=== PATIENT | male | born 1985 | race Caucasian/White ===

== ENCOUNTER 2022-02-17 00:15 | Emergency (ER) | payer OTHER, SELFPAY ==
--- NOTE | ~2022-02-17 | XR_ITS ---
EXAMINATION: XR ABDOMEN KUB CLINICAL INDICATION: Fecal impaction COMPARISON: None TECHNIQUE: AP view of the abdomen. FINDINGS: The bowel gas pattern is nonobstructive. No significant stool burden is seen. There is limited assessment for free air with supine positioning. No suspicious calcifications are seen. Suture line and clips are noted in the left upper quadrant. No acute osseous findings are seen. Mild degenerative changes in the hips. XR/XR KUB IMPRESSION: Nonobstructive bowel gas pattern. No significant stool burden.
[2022-02-17 00:39] VITALS: BP 128/95; PULSE 88; RESP 17; TEMP 36.8; O2SAT 99; BMI 33.7
[2022-02-17 01:00] LABS: MANUAL DIFF FLAG NO
[2022-02-17 01:02] LABS: Basophils Percent Auto 0.3 % (0-2); Eosinophils Absolute Auto 0.1 X10*3/uL (0.0-0.4); Eosinophils Percent Auto 1.5 % (0-4); Hematocrit 43.6 % (42.0-52.0); Imm Gran Abs Auto 0.02 X10*3/uL (0.00-0.03); Imm Gran Pct Auto 0.2 % (0.0-0.4); Lymphocytes Absolute Auto 3.1 X10*3/uL (1.2-4.9); Lymphocytes Percent Auto 35.6 % (20-40); Mean Corpuscular HGB Conc 36.7 g/dl (31.0-36.0); Mean Corpuscular Hemoglobin 31.6 pg (27.0-33.0); Mean Corpuscular Volume 86.2 fL (80.0-98.0); Mean Platelet Volume 10.2 fL (9.4-12.4); Monocytes Absolute Auto 0.5 X10*3/uL (0.1-1.2); Monocytes Percent Auto 5.9 % (2-11); Neutrophils Absolute Auto 4.9 x10*3/uL (2.0-8.3); Neutrophils Percent Auto 56.5 % (45-73); Platelet Count 253 X10*3/uL (160-400); Red Blood Count 5.06 X10*6/uL (4.60-5.80); Red Cell Distribution Width 11.8 % (11.0-16.0); White Blood Count 8.7 X10*3/uL (4.8-10.8)
[2022-02-17 01:24] LABS: Alanine Aminotransferase 36 U/L (0-40); Albumin Level 4.3 g/dL (3.5-5.0); Alkaline Phosphatase 79 U/L (39-117); Anion Gap 17 (12-20); Aspartate Amino Transferase 28 U/L (5-37); Bilirubin Total 0.9 mg/dL (0.0-1.0); Blood Urea Nitrogen 13 mg/dL (9-16); Calcium 9.1 mg/dL (8.4-10.2); Carbon Dioxide 23 mmol/L (22-29); Chloride 103 mmol/L (96-108); Creatinine Clr Calc Pharmacy 109.7; Estimated Glomerular Filt Rate > 60; Glucose Random 87 mg/dL (60-115); Lipase 164 U/L (8-78); Potassium 4.5 mmol/L (3.3-5.1); Sodium 138 mmol/L (135-145); Total Protein 7.4 g/dL (6.5-8.0)
--- NOTE | 2022-02-17 03:38 | ED.ABDPAIN ---
HPI - Abdominal Pain General Chief Complaint: Abdominal Pain Stated Complaint: Constipated ?Hemorrhoids Time Seen by Provider: 02/17/22 03:37 Source: patient Mode of arrival: ambulatory Limitations: no limitations History of Present Illness HPI narrative: Patient status post gastric bypass done at [facility] 2 weeks ago been constipated taking milk of magnesia without significant relief also feels has hemorrhoids has lot of pain when he moves his bowels last bowel movement was earlier today , no nausea no vomiting no abdominal pain Related Data Previous Rx's Medication Instructions Recorded nitroglycerin 0.4 % (w/w) rectal 1 inch [place] BID #30 grams 02/17/22 ointment (Rectiv) Allergies Allergy/AdvReac Type Severity Reaction Status Date / Time No Known Allergies Allergy Verified 02/17/22 00:42 Review of Systems Review of Systems Yes all other systems are reviewed and are negative [facility] Social History Social History Advance Directives: No Advance Directives Information Provided: Yes Physical Exam ED Vital Signs: Vital Signs - 24 hr 02/17/22 00:39 02/17/22 04:00 Temperature 98.2 F 98.0 F Pulse Rate 88 60 Respiratory Rate 17 16 Blood Pressure 128/95 H 103/57 L Pulse Oximetry 99 98 Oxygen Delivery Method Room Air Room Air BMI result Body Mass Index 33.7 Appearance: Alert. Oriented X3. No acute distress. Eyes: PERRLA, No Nystagmus ENT: Pharynx normal. Oral Mucosa moist Neck: Normal inspection. Neck supple. CVS: Normal heart rate and rhythm. Pulses normal. Respiratory: No respiratory distress. Equal air entry bilateral, no wheezing/rales/rhonchi Abdomen: Soft and nontender. Bowel sounds are present, no mass palpable, no CVA tenderness rectal; tender to touch likely anal fissure no hemorrhoids seen or palpated Skin: Skin warm and dry. Normal skin color. Normal skin turgor. Extremities: No lower extremity edema. No calf tenderness Neuro: Oriented X 3. No motor deficit. MDM - Abdominal Pain Lab Data Result diagrams: 02/17/22 00:49 02/17/22 00:49 Labs: Lab Results 02/17/22 02/17/22 Range/Units 00:49 00:49 WBC 8.7 (4.8-10.8) X10*3/uL RBC 5.06 (4.60-5.80) X10*6/uL Hgb 16.0 (14.0-18.0) g/dl Hct 43.6 (42.0-52.0) % MCV 86.2 (80.0-98.0) fL MCH 31.6 (27.0-33.0) pg MCHC 36.7 H (31.0-36.0) g/dl RDW 11.8 (11.0-16.0) % Plt Count 253 (160-400) X10*3/uL MPV 10.2 (9.4-12.4) fL Immature Gran % (Auto) 0.2 (0.0-0.4) % Neut % (Auto) 56.5 (45-73) % Lymph % (Auto) 35.6 (20-40) % [place] % (Auto) 5.9 (2-11) % Eos % (Auto) 1.5 (0-4) % Baso % (Auto) 0.3 (0-2) % Lymph # (Auto) 3.1 (1.2-4.9) X10*3/uL [place] # (Auto) 0.5 (0.1-1.2) X10*3/uL Eos # (Auto) 0.1 (0.0-0.4) X10*3/uL Baso # (Auto) 0.0 (0.0-0.2) X10*3/uL Abs Immat Gran (auto) 0.02 (0.00-0.03) X10*3/uL Absolute Neuts (auto) 4.9 (2.0-8.3) x10*3/uL Absolute Nucleated RBC 0.000 (0.0-0.012) X10*3/uL Nucleated RBC % (auto) 0.0 (0.0-0.2) /100WBC Sodium 138 (135-145) mmol/L Potassium 4.5 (3.3-5.1) mmol/L Chloride 103 (96-108) mmol/L Carbon Dioxide 23 (22-29) mmol/L Anion Gap 17 (12-20) BUN 13 (9-16) mg/dL Creatinine 1.15 (0.5-1.4) mg/dL Estim Creat Clear Calc 109.7 Estimated GFR > 60 Random Glucose 87 (60-115) mg/dL Calcium 9.1 (8.4-10.2) mg/dL Total Bilirubin 0.9 (0.0-1.0) mg/dL AST 28 (5-37) U/L ALT 36 (0-40) U/L Alkaline Phosphatase 79 (39-117) U/L Total Protein 7.4 (6.5-8.0) g/dL Albumin 4.3 (3.5-5.0) g/dL Lipase 164 H (8-78) U/L Discharge Plan Discharge Clinical Impression: Acute anal fissure Patient Disposition: Home, Self-Care Instructions: Anal Fissure (ED) Additional Instructions: Avoid straining/constipation Continue take a stool softener and follow-up with bariatric surgeon about the diet Apply nitroglycerin ointment at the rectum area twice daily until it heals Evite el esfuerzo/estre?imiento Contin?e tomando un ablandador de heces y monica un seguimiento con el cirujano yandy?trico sobre la dieta. Aplique pomada de nitroglicerina en el ?ricco del recto dos veces al d?a hasta que sane Prescriptions: New Rectiv 0.4 % (w/w) ointment 1 inch [place] BID Qty: 30 0RF Stand Alone Forms: Work/School Release Interventions: ED Discharge Assessment Last Done: 02/17/22 04:24 Discharge Date/Time: 02/17/22 04:26 Print Language: Citizen Of [place]
[2022-02-17] MEDS: Lidocaine HCl 2 % Urojet 10 ML JEL.PF.APP TOPICAL (03:54)
[2022-02-17 04:00] VITALS: BP 103/57; PULSE 60; RESP 16; TEMP 36.7; O2SAT 98
== END 2022-02-17 04:26 | disposition home or self-care (01) ==
PROVIDERS: Emergency Provider Internal Medicine; PCP Family Medicine
DX: K60.2 Anal fissure, unspecified (principal); K59.00 Constipation, unspecified; Z79.899 Other long term (current) drug therapy
CPT/HCPCS: 36415; 74018; 80053; 83690; 85025; 99283

== ENCOUNTER 2023-11-22 11:39 | Emergency (ER) | payer OTHER, SELFPAY ==
--- NOTE | 2023-11-22 11:49 | ED_ITS ---
HPI - General Adult General Chief complaint: Upper Respiratory Symptoms Stated complaint: Headache, congestion Source: patient Mode of arrival: ambulatory Limitations: no limitations History of Present Illness ED Provider: Dottie Lopez NP HPI narrative: Patient is a 38-year-old male presenting to the ED with complaint of headache, sore throat, body aches, fever since Monday. Has not taken any at-home tests. Cough is nonproductive. Denies chest pain or palpitations. Denies abdominal pain, nausea, vomiting or diarrhea. MD complaint: body aches, fever Onset (ago): day(s) Associated symptoms: cough Treatments prior to arrival: none Related Data Previous Rx's ?Medication ?Instructions ?Recorded nitroglycerin 0.4 % (w/w) rectal 1 inch [place] BID #30 grams 02/17/22 ointment (Rectiv) benzonatate 100 mg capsule 100 mg PO TID PRN cough #14 caps 11/22/23 Allergies Allergy/AdvReac Type Severity Reaction Status Date / Time No Known Allergies Allergy Verified 11/22/23 11:51 Review of Systems Review of Systems: As per HPI Yes all other systems are reviewed and are negative Constitutional: Constitutional: Reports as per HPI Physical Exam ED Vital Signs: Vital Signs - 24 hr 11/22/23 11:50 Temperature 98.2 F Pulse Rate 77 Respiratory Rate 16 Blood Pressure 128/67 Pulse Oximetry 96 Oxygen Delivery Method Room Air BMI result Body Mass Index 30.4 Vital signs have been reviewed and appear to be correct. Blood pressure normal. Heart rate normal. Respiratory rate normal. Temperature normal. Oxygen saturation normal. Const General: cooperative, healthy appearing and no acute distress Orientation/consciousness: oriented to person, oriented to place, oriented to time and patient oriented x3 Limitations: no limitations [facility] Head: Yes normocephalic and Yes atraumatic Ears: external ears normal General nose exam: Normal external nose present Face and sinus: Yes face symmetric Mouth: oropharynx normal and moist mucous membranes Throat: Yes uvula midline Eyes Pupils: Equal, round and reactive pupils present Neck Neck: Yes normal visual inspection and Yes supple Resp Effort & Inspection: normal respiratory effort and able to speak in complete sentences Auscultation: clear to auscultation bilaterally Cardio Rate: regular rate Rhythm: regular rhythm Heart sounds: S1 normal heart sound present and S2 normal heart sound present GI Palpation (GI): Soft to palpation and nontender Auscultation: normoactive bowel sounds General: Yes no CVA tenderness Back/Spine/Pelvis Back: no CVA tenderness Skin General skin exam: elasticity normal and turgor normal Neuro General: oriented to person, oriented to place, oriented to time, patient oriented x3, moves all extremities, no focal motor deficits and CN's II-XI intact bilaterally Cranial nerves: Yes Equal, round and reactive pupils present Cognition (Neuro): normal cognition Extrem General: Yes full ROM, Yes no pedal edema and Yes no calf tenderness Psych Mental Status: mental status grossly normal Affect: normal affect Thought process: Normal thought process present Medical Decision Making Medical Decision Making [facility] Narrative: Patient is a 38-year-old male presenting to the ED with complaint of headache, sore throat, body aches, fever since Monday. On exam patient is awake, A+Ox3, VS WNL, afebrile, normal neurological exam without focal deficits, physical exam findings as above. Given reported symptoms and physical exam findings, initial differential includes viral illness, flu, covid, rsv, strep. Viral and strep swabs negative. Physical exam unremarkable. Discussed with patient that symptoms are likely due to a viral illness. Instructed him to follow up with PCP. Will send prescription for benzonatate. Return precautions discussed. Patient verbalized understanding of and agreement with plan. Differential Diagnosis Differential Diagnoses: The differential diagnosis associated with the presentation includes As per [facility] Lab Data [facility] Lab Attestation statement: I reviewed the patient's lab results. As per [facility] Labs: Lab Results 11/22/23 Range/Units 12:22 Influenza Type A (PCR) NEGATIVE (Negative) Influenza Type B (PCR) NEGATIVE (Negative) RSV RNA Qual (PCR) NEGATIVE (Negative) SARS-CoV-2 RNA (RT-PCR) NEGATIVE (Negative) S. pyogenes GrpA WALDEMAR Negative (Negative) External Record Review External record reviewed: Inpatient record, Office record and Outpatient record Discharge Plan Discharge Clinical Impression: Upper respiratory virus Patient Disposition: Home, Self-Care Instructions: Upper Respiratory Infection (DC), Viral Syndrome (ED) Additional Instructions: You were evaluated in the emergency department today for sore throat and cough, body aches. Your Covid, flu, RSV and strep tests were all negative. Your symptoms are likely related to a viral illness which will resolve on its own with time and rest. You should ensure adequate fluid intake, and can use Tylenol 650 mg or ibuprofen 600 mg every 6 hours as needed for fever or discomfort. You are being prescribed benzonatate for cough, please keep this out of the reach of children. Please follow-up with your primary care provider this week. Return to the emergency department if you develop chest pain, worsening shortness of breath, difficulty swallowing, fever 100.4? F or greater or any other concerning symptoms. Prescriptions: New benzonatate 100 mg capsule 100 mg PO TID PRN (Reason: cough) Qty: 14 0RF No Action Rectiv 0.4 % (w/w) ointment 1 inch NM BID Qty: 30 0RF Print Language: Citizen Of [place]
[2023-11-22 11:50] VITALS: BP 128/67; PULSE 77; RESP 16; TEMP 36.8; O2SAT 96; BMI 30.4
[2023-11-22 13:01] LABS: IDNOW Serial# 08D9AD1C; Strep A Nucleic Acid Negative (Negative)
[2023-11-22 13:25] LABS: Influenza A PCR NEGATIVE (Negative); Influenza B PCR NEGATIVE (Negative); Resp Syncy Virus RNA Qual PCR NEGATIVE (Negative); SARS COV2 PCR INHOUSE NEGATIVE (Negative)
[2023-11-22 14:50] VITALS: BP 128/67; PULSE 77; RESP 16; TEMP 36.8; O2SAT 96
== END 2023-11-22 14:51 | disposition home or self-care (01) ==
LOC: HO.ED 14:44
PROVIDERS: Registered Nurse Emergency; Emergency Provider Emergency Medicine Emergency Medical Services
DX: J06.9 Acute upper respiratory infection, unspecified (principal); R51.9 Headache, unspecified; J02.9 Acute pharyngitis, unspecified; R50.9 Fever, unspecified
CPT/HCPCS: 0241U; 87651; 99282; 99283

== ENCOUNTER 2024-06-06 12:48 | Emergency (ER) | payer OTHER, SELFPAY ==
--- NOTE | ~2024-06-06 | CT_ITS ---
EXAMINATION: CT ABDOMEN AND PELVIS WITH CONTRAST CLINICAL INFORMATION: Left lower quadrant pain COMPARISON: None available. TECHNIQUE: Multidetector volumetric images were obtained from the superior aspect of the liver through the pubic symphysis following administration 85 mL of Omnipaque 350 intravenous contrast. Sagittal and coronal reformatted images were obtained on the technologist's workstation. Oral contrast: No This CT examination was performed using dose optimization techniques as appropriate, variously including the following: *Automated exposure control *Adjustment of mA and/or kV according to patient size (this includes techniques or standardized protocols for targeted exams where dose is matched to indication/reason for exam; i.e. extremities or head) *Use of iterative reconstruction technique DLP: 829 mGy-cm FINDINGS: LUNG BASES: The visualized lung bases are unremarkable. There is moderate thickening of distal esophagus with a hiatal hernia. LIVER, GALLBLADDER, AND BILIARY TREE: The liver is normal in size, shape, and attenuation. No focal hepatic lesion or biliary ductal dilatation is present. The gallbladder is unremarkable with no evidence of radiopaque gallstones, gallbladder wall thickening, or obvious pericholecystic inflammatory changes. PANCREAS: Unremarkable. SPLEEN: Unremarkable. ADRENAL GLANDS: Unremarkable. KIDNEYS AND URETERS: The kidneys are normal in size, shape, and attenuation. No hydronephrosis, hydroureter, or calculi seen. No perinephric stranding. BLADDER: Unremarkable. GASTROINTESTINAL TRACT: There are gastric postsurgical changes. There is moderate stool in the right colon. Minimal stool is seen within the distal ileal loops likely constipation. Appendix is not visualized. No free air, free fluid or inflammatory process seen. ABDOMINAL WALL: No significant hernia is appreciated. LYMPH NODES: Normal. VASCULAR: Unremarkable. PELVIC VISCERA: Unremarkable. OSSEOUS STRUCTURES: No aggressive lytic or sclerotic process seen. There is moderate ventral spondylosis dorsal spine lower dorsal spine prior CT/CT abdomen pelvis w IV con IMPRESSION: 1. No acute intra-abdominal process seen. 2. Moderate constipation. 3. Gastric postsurgical changes with moderate thickening of distal esophagus and a hiatal hernia. Fleischner guidelines were followed. Electronically signed by: Srinivasa Adkins MD 06/06/2024 07:48 PM [facility]
[2024-06-06 13:20] VITALS: BP 118/74; PULSE 69; RESP 16; TEMP 36.8; O2SAT 97; BMI 33.3
--- NOTE | 2024-06-06 13:20 | ED_ITS ---
HPI - General Adult General Chief complaint: Abdominal Pain Stated complaint: abd pain Time Seen by Provider: 06/06/24 16:51 Source: patient Limitations: no limitations History of Present Illness ED Provider: Celsa Velazquez PA-C HPI narrative: 39-year-old otherwise healthy male presents with the abdominal pain times 2-3 days. Patient has been having left mid to lower abdominal discomfort described as a burning sensation. The pain is intermittent. Associated nausea at times no active vomiting. Patient states he is having intermittent diarrhea as well. Denies constipation or fever. Denies history of kidney stones, hematuria or dysuria. Denies recent hospitalization, travel or use of antibiotic Related Data Previous Rx's ?Medication ?Instructions ?Recorded nitroglycerin 0.4 % (w/w) rectal 1 inch [place] BID #30 grams 02/17/22 ointment (Rectiv) benzonatate 100 mg capsule 100 mg PO TID PRN cough #14 caps 11/22/23 Allergies Allergy/AdvReac Type Severity Reaction Status Date / Time No Known Allergies Allergy Verified 06/06/24 13:24 Review of Systems 2 Review of Systems: Yes all other systems are reviewed and are negative Constitutional: Constitutional: Denies fatigue and Denies fever(s) Cardiovascular: Cardiovascular: Denies chest pain and Denies dyspnea Respiratory: Respiratory: Denies cough and Denies dyspnea Gastrointestinal: Gastrointestinal: Reports abdominal pain, Reports diarrhea, Reports nausea and Denies vomiting Genitourinary: Genitourinary: Denies hematuria, Denies dysuria and Denies flank pain Endocrine: Endocrine: Denies fatigue PMFSH Past Medical History Attestation statement: The following information was validated with the patient. Social History Social History Smoked in Last 30 Days: No Use of substances other than those prescribed or required for medical reasons: No Advance Directives: No Advance Directives Information Provided: No Do you have a plan to hurt others: No Plan Physical Exam ED Vital Signs: Vital Signs - 24 hr 06/06/24 13:20 06/06/24 19:26 Temperature 98.3 F 97.9 F Pulse Rate 69 67 Respiratory Rate 16 18 Blood Pressure 118/74 115/65 Pulse Oximetry 97 96 Oxygen Delivery Method Room Air Room Air BMI result Body Mass Index 33.3 Const Other: Alert, overall well appearing Orientation/consciousness: patient oriented x3 Resp Effort & Inspection: normal respiratory effort Cardio Other: Normal peripheral perfusion GI Other: Abdomen is soft, nondistended, mild tenderness mid left abdomen with palpation no guarding Skin Other: Warm dry no rash Neuro General: patient oriented x3, no focal motor deficits and CN's II-XI intact bilaterally Psych Other: Calm cooperative Course Course Course Narrative: RME, this is a rapid medical exam performed by Leonel Unger please refer to primary provider for complete H&P- 39-year-old male presents for evaluation of burning epigastric pain. His pain started yesterday. Plan for labs, urinalysis. Medications Administered Discontinued Medications Generic Name Dose Route Start Last Admin Trade Name Freq PRN Reason Stop Dose Admin Sodium Chloride 500 mls @ 500 mls/hr 06/06/24 17:22 06/06/24 19:20 Ns IV 06/06/24 18:21 Infused .Q1H ONE Infusion Iohexol 100 ml 06/06/24 17:53 06/06/24 17:56 Iohexol 350 Mg/Ml 100 Ml Infus..Btl IV 06/06/24 17:54 85 ml ONCE ONE Administration Ketorolac Tromethamine 15 mg 06/06/24 17:22 06/06/24 17:43 Ketorolac Tromethamine 15 Mg/Ml Vial IVPUSH 06/06/24 17:23 15 mg ONCE ONE Administration Medical Decision Making Medical Decision Making [facility] Narrative: 39-year-old otherwise healthy male presents with the abdominal pain times 2-3 days. Patient has been having left mid to lower abdominal discomfort described as a burning sensation. The pain is intermittent. Associated nausea at times no active vomiting. Patient states he is having intermittent diarrhea as well. Denies constipation or fever. Denies history of kidney stones, hematuria or dysuria. Denies recent hospitalization, travel or use of antibiotic. No chronic problems History: Per patient I have considered the following differential diagnoses: Renal colic, diverticulitis, traveler's diarrhea, C diff, viral gastroenteritis Plan: Screening labs were obtained from triage. Given distribution of disc comfort in nature of symptoms, I am considering potential diverticulitis, we will obtain a CT scan. Giving Toradol and IV fluid. Thought about renal colic, however he has no related symptoms, we will add a urinalysis. This could also be viral gastroenteritis given such illness has been prevalent within the community. He has no risk factors for C diff or traveler's diarrhea. I have independently reviewed the following tests: Labs: No leukocytosis, not anemic, no electrolyte abnormality, urine not infected no hematuria CT abdomen and pelvis: CT/CT abdomen pelvis w IV con IMPRESSION: 1. No acute intra-abdominal process seen. 2. Moderate constipation. 3. Gastric postsurgical changes with moderate thickening of distal esophagus and a hiatal hernia. Fleischner guidelines were followed. Electronically signed by: Srinivasa Adkins MD 06/06/2024 07:48 PM [facility] Lab Data 06/06/24 14:25 06/06/24 14:25 Labs: Lab Results 06/06/24 06/06/24 Range/Units 14:25 17:11 WBC 7.7 (4.8-10.8) X10*3/uL RBC 4.90 (4.60-5.80) X10*6/uL Hgb 15.6 (14.0-18.0) g/dl Hct 44.5 (42.0-52.0) % MCV 90.8 (80.0-98.0) fL MCH 31.8 (27.0-33.0) pg MCHC 35.1 (31.0-36.0) g/dl RDW 12.3 (11.0-16.0) % Plt Count 188 D (160-400) X10*3/uL MPV 10.4 (9.4-12.4) fL Immature Gran % (Auto) 0.1 (0.0-0.4) % Neut % (Auto) 64.5 (45-73) % Lymph % (Auto) 28.2 (20-40) % [place] % (Auto) 5.6 (2-11) % Eos % (Auto) 1.2 (0-4) % Baso % (Auto) 0.4 (0-2) % Lymph # (Auto) 2.2 (1.2-4.9) X10*3/uL [place] # (Auto) 0.4 (0.1-1.2) X10*3/uL Eos # (Auto) 0.1 (0.0-0.4) X10*3/uL Baso # (Auto) 0.0 (0.0-0.2) X10*3/uL Abs Immat Gran (auto) 0.01 (0.00-0.03) X10*3/uL Absolute Neuts (auto) 5.0 (2.0-8.3) x10*3/uL Absolute Nucleated RBC 0.000 (0.0-0.012) X10*3/uL Nucleated RBC % (auto) 0.0 (0.0-0.2) /100WBC Sodium 141 (135-145) mmol/L Potassium 4.6 (3.3-5.1) mmol/L Chloride 108 (96-108) mmol/L Carbon Dioxide 30 H (22-29) mmol/L Anion Gap 8 L (12-20) BUN 12 (9-16) mg/dL Creatinine 1.04 (0.5-1.4) mg/dL Estim Creat Clear Calc 117.0 Estimated GFR > 60 Random Glucose 91 (60-115) mg/dL Calcium 8.9 (8.4-10.2) mg/dL Total Bilirubin 0.5 (0.0-1.0) mg/dL AST 24 (5-37) U/L ALT 23 (0-40) U/L Alkaline Phosphatase 96 (39-117) U/L Total Protein 7.0 (6.5-8.0) g/dL Albumin 4.1 (3.5-5.0) g/dL Lipase 39 (8-78) U/L Urine Color Yellow Urine Appearance Clear Urine pH 5.5 (5.0-9.0) Ur Specific [place] 1.020 (1.005-1.025) Urine Protein Negative (Neg-Trace) mg/dL Urine Glucose (UA) Negative (Negative) mg/dL Urine Ketones Negative (Negative) mg/dL Urine Blood Negative (Negative) Urine Nitrite Negative (Negative) Ur Leukocyte Esterase Negative (Negative) Urine RBC 0-2 (0-2) /HPF Urine WBC 0-5 (0-5) /HPF Ur Squamous Epith Cells 0-2 (0-2) /HPF Urine Bacteria None Seen (None Seen) Hyaline Casts 0-2 (0-2) /LPF Influenza Type A (PCR) NEGATIVE (Negative) Influenza Type B (PCR) NEGATIVE (Negative) RSV RNA Qual (PCR) NEGATIVE (Negative) SARS-CoV-2 RNA (RT-PCR) NEGATIVE (Negative) Discharge Plan Discharge Clinical Impression: Constipation Patient Disposition: Home, Self-Care Instructions: Constipation (ED) Additional Instructions: All of your labs were normal, your urine is not infected. You were found to be constipated on the CT scan. See home care instructions. You should use [id number] Colace, this is a stool softener, 1 to 2 times a day. You can also use [id number] MiraLax. Mix the powder per package instructions, you can take it multiple times a day, until you begin having normal, regular bowel movements. Follow up with your primary care provider as needed. Prescriptions: No Action Rectiv 0.4 % (w/w) ointment 1 inch [place] BID Qty: 30 0RF benzonatate 100 mg capsule 100 mg PO TID PRN (Reason: cough) Qty: 14 0RF Stand Alone Forms: Work/School Release Print Language: Polish
[2024-06-06 14:30] LABS: MANUAL DIFF FLAG NO
[2024-06-06 14:31] LABS: Basophils Percent Auto 0.4 % (0-2); Eosinophils Absolute Auto 0.1 X10*3/uL (0.0-0.4); Eosinophils Percent Auto 1.2 % (0-4); Hematocrit 44.5 % (42.0-52.0); Hemoglobin 15.6 g/dl (14.0-18.0); Imm Gran Abs Auto 0.01 X10*3/uL (0.00-0.03); Imm Gran Pct Auto 0.1 % (0.0-0.4); Lymphocytes Absolute Auto 2.2 X10*3/uL (1.2-4.9); Lymphocytes Percent Auto 28.2 % (20-40); Mean Corpuscular HGB Conc 35.1 g/dl (31.0-36.0); Mean Corpuscular Hemoglobin 31.8 pg (27.0-33.0); Mean Corpuscular Volume 90.8 fL (80.0-98.0); Mean Platelet Volume 10.4 fL (9.4-12.4); Monocytes Absolute Auto 0.4 X10*3/uL (0.1-1.2); Monocytes Percent Auto 5.6 % (2-11); Neutrophils Percent Auto 64.5 % (45-73); Platelet Count 188 X10*3/uL (160-400); Red Cell Distribution Width 12.3 % (11.0-16.0); White Blood Count 7.7 X10*3/uL (4.8-10.8)
[2024-06-06 14:45] LABS: Alanine Aminotransferase 23 U/L (0-40); Albumin Level 4.1 g/dL (3.5-5.0); Alkaline Phosphatase 96 U/L (39-117); Anion Gap 8 (12-20); Aspartate Amino Transferase 24 U/L (5-37); Bilirubin Total 0.5 mg/dL (0.0-1.0); Blood Urea Nitrogen 12 mg/dL (9-16); Calcium 8.9 mg/dL (8.4-10.2); Carbon Dioxide 30 mmol/L (22-29); Chloride 108 mmol/L (96-108); Estimated Glomerular Filt Rate > 60; Glucose Random 91 mg/dL (60-115); Lipase 39 U/L (8-78); Potassium 4.6 mmol/L (3.3-5.1); Sodium 141 mmol/L (135-145)
[2024-06-06 15:12] LABS: Influenza A PCR NEGATIVE (Negative); Influenza B PCR NEGATIVE (Negative); Resp Syncy Virus RNA Qual PCR NEGATIVE (Negative); SARS COV2 PCR INHOUSE NEGATIVE (Negative)
[2024-06-06 17:21] LABS: Appearance Urine Clear; Color Urine Yellow; Glucose Urine UA Negative (Negative); Leukocyte Esterase Urine Negative (Negative); Nitrite Urine Negative (Negative); PH 5.5 (5.0-9.0); Urine Blood Negative (Negative); Urine Ketones Negative (Negative); Urine Protein Negative (Neg-Trace)
[2024-06-06 17:23] LABS: Bacteria Urine None Seen (None Seen); Hyaline Casts Urine 0-2 /LPF (0-2); RBC Urine 0-2 /HPF (0-2); Squamous Epithelial Cell Urine 0-2 /HPF (0-2); WBC Urine 0-5 /HPF (0-5)
[2024-06-06] MEDS: Ketorolac Tromethamine 15 MG/ML VIAL IVPUSH (17:43)
[2024-06-06] MEDS: 0.9 % Sodium Chloride 500 ML IV (17:43)
[2024-06-06] MEDS: iohexoL 350 MG/ML 100 ML INFUS..BTL IV (17:56)
[2024-06-06 19:26] VITALS: BP 115/65; PULSE 67; RESP 18; TEMP 36.6; O2SAT 96
[2024-06-06 22:20] VITALS: BP 115/65; PULSE 67; RESP 18; TEMP 36.6; O2SAT 96
== END 2024-06-06 22:20 | disposition home or self-care (01) ==
PROVIDERS: Physician Assistant; Emergency Provider Emergency Medicine; PCP Internal Medicine
DX: K59.00 Constipation, unspecified (principal); R10.30 Lower abdominal pain, unspecified; Z03.818 Encounter for observation for suspected exposure to other biological agents ruled out; R11.0 Nausea
CPT/HCPCS: 0241U; 74177; 80053; 81001; 83690; 85025; 96361; 96374; 99284; 99285; J1885; Q9967

== ENCOUNTER → 2024-06-06 17:22 | Outpatient (BNV) | payer OTHER, SELFPAY | PROVIDERS: Emergency Provider Emergency Medicine; PCP Internal Medicine; Visit Provider Radiology Diagnostic Radiology | DX: K59.00 Constipation, unspecified (principal); K22.89 Other specified disease of esophagus | CPT/HCPCS: 74177 ==

== ENCOUNTER 2024-09-19 14:47 | Emergency (ER) | payer OTHER, SELFPAY ==
--- NOTE | ~2024-09-19 | XR_ITS ---
EXAMINATION: XR CHEST CLINICAL INFORMATION: R sided/rib pain COMPARISON: None available. TECHNIQUE: 2 views of the chest were obtained. FINDINGS: No consolidation, pleural effusion or pneumothorax. No hyperinflation. Cardiomediastinal select size is normal. Multilevel thoracic spondylosis with mild S-shaped curvature. Degenerative changes in the acromioclavicular joint, mild. Vascular clips in the epigastric region.. XR/XR chest 2V IMPRESSION: No acute airspace disease. Mild scoliosis and moderate thoracic spondylosis. Electronically signed by: Delbert Osuna MD 09/19/2024 03:30 PM EDT
[2024-09-19 15:02] VITALS: BP 123/75; PULSE 82; RESP 18; TEMP 36.2; O2SAT 97; BMI 33.0
--- NOTE | 2024-09-19 15:02 | ED_ITS ---
HPI - URI/Sore Throat General Chief Complaint: Abdominal Pain Stated Complaint: abd pain , diarrhea Time Seen by Provider: 09/19/24 17:30 Source: patient Mode of arrival: ambulatory Limitations: no limitations History of Present Illness ED Provider: Renny Carpenter DO HPI Narrative: 39-year-old male with past medical history significant for gastric sleeve in 2018 and Kia-en-Y gastric bypass in 2021 (follows up with bariatric surgeon nearby) as well as appendectomy as a child presents to the ED for 3 days of brown diarrhea that 7 episodes today but slow down upon arrival. He also reports some cramping abdominal pain but otherwise denies fevers, shaking chills, nausea, vomiting, decreased appetite, inability to eat or drink or any additional symptoms. He states he traveled to [place] 2 weeks ago. He denies any sick contacts. He denies recent antibiotic therapy. He denies walk or bloody stools. Related Data Previous Rx's ?Medication ?Instructions ?Recorded nitroglycerin 0.4 % (w/w) rectal 1 inch NC BID #30 grams 02/17/22 ointment (Rectiv) benzonatate 100 mg capsule 100 mg PO TID PRN cough #14 caps 11/22/23 Allergies Allergy/AdvReac Type Severity Reaction Status Date / Time No Known Allergies Allergy Verified 09/19/24 15:04 Review of Systems 2 Review of Systems: Yes all other systems are reviewed and are negative [facility] Social History Social History Alcohol intake: never Smoked in Last 30 Days: No Use of substances other than those prescribed or required for medical reasons: No Advance Directives: No Advance Directives Information Provided: No Physical Exam 2 Vital Signs: Vital Signs: Last Vital Signs Temp 99 F 09/19/24 18:57 Pulse 69 09/19/24 18:57 Resp 18 09/19/24 18:57 BP 138/75 09/19/24 18:57 Pulse Ox 98 09/19/24 18:57 O2 Del Method Room Air 09/19/24 18:57 BMI result Body Mass Index 33.0 Constitutional: ?Alert, oriented, speaking in full sentences HEENT: ?Normocephalic, atraumatic. ?Moist mucous membranes Eyes: ?PERRL, EOMI Neck: ?Supple, nontender Chest: ?No chest wall tenderness Respiratory: ?Lungs clear to auscultation, no increased work of breathing Cardio: ?Regular rate and rhythm, no murmur, 2+ radial and DP pulses symmetrically GI: ?Soft, nondistended, nontender in all 4 quadrants Back: ?Normal range of motion, nontender Skin: ?No rash, no lesions Neuro: ?Alert and oriented to person, place and time, moves all 4 extremities, no focal deficits Extremities: ?No swelling or tenderness, full range of motion Psych: ?Calm, alert and cooperative, appropriate behavior Course Course Course Narrative: This is a Rapid Medical Exam performed in triage by Clare Clinton PA-C. Full HPI, ROS and PE to be performed by primary ED provider. 39 yo M w/PMHx gastric bypass presenting to the ED c/o [place], R sided abdominal pain & diarrhea x3 days. denies dysuria, hematuria, SOB, CP, fever, melena, brbpr PE: nontoxic appearing, ambulating w/steady gait, nontoxic Plan: labs, UA, CXR Medications Administered Discontinued Medications Generic Name Dose Route Start Last Admin Trade Name Freq PRN Reason Stop Dose Admin Dicyclomine HCl 10 mg 09/19/24 18:19 09/19/24 18:22 Dicyclomine Hcl 10 Mg Capsule PO 09/19/24 18:20 10 mg ONCE ONE Administration Omeprazole 40 mg 09/19/24 18:19 09/19/24 18:22 Omeprazole 40 Mg Capsule. PO 09/19/24 18:20 40 mg ONCE ONE Administration Medical Decision Making Medical Decision Making [facility] Narrative: This is a well-appearing, vitally stable patient presenting with a few days of diarrhea. Differential diagnosis includes enteritis, especially travels diarrhea. He is not septic appearing. He has no focal tenderness to palpation. There are no concerns at this time for bypass complications such as marginal ulcer, obstruction or leak. The patient has no tenderness to palpation comprehensive exam. He has unremarkable labs including electrolytes. I have ordered a stool panel including C diff toxin and patient will attempts to move his bowels again prior to discharge. Although he speaks Prydeinig very well, I discussed plan with in-person spanish interpreter, Tarik, including management and return precautions. Patient feels comfortable with discharge to home. He does not improve significantly today with Bentyl and omeprazole but overall feels comfortable without any significant discomfort. There are no indications for CT imaging with bariatric protocol at this time. Admission/Observation Consideration of admission/observation: Escalation of care including admission/observation considered Lab Data 09/19/24 15:36 09/19/24 15:36 Labs: Lab Results 09/19/24 Range/Units 15:36 WBC 6.7 (4.8-10.8) X10*3/uL RBC 5.00 (4.60-5.80) X10*6/uL Hgb 15.9 (14.0-18.0) g/dl Hct 45.6 (42.0-52.0) % MCV 91.2 (80.0-98.0) fL MCH 31.8 (27.0-33.0) pg MCHC 34.9 (31.0-36.0) g/dl RDW 12.5 (11.0-16.0) % Plt Count 183 (160-400) X10*3/uL MPV 10.3 (9.4-12.4) fL Immature Gran % (Auto) 0.3 (0.0-0.4) % Neut % (Auto) 71.8 (45-73) % Lymph % (Auto) 20.0 (20-40) % [place] % (Auto) 7.2 (2-11) % Eos % (Auto) 0.6 (0-4) % Baso % (Auto) 0.1 (0-2) % Lymph # (Auto) 1.3 (1.2-4.9) X10*3/uL [place] # (Auto) 0.5 (0.1-1.2) X10*3/uL Eos # (Auto) 0.0 (0.0-0.4) X10*3/uL Baso # (Auto) 0.0 (0.0-0.2) X10*3/uL Abs Immat Gran (auto) 0.02 (0.00-0.03) X10*3/uL Absolute Neuts (auto) 4.8 (2.0-8.3) x10*3/uL Absolute Nucleated RBC 0.000 (0.0-0.012) X10*3/uL Nucleated RBC % (auto) 0.0 (0.0-0.2) /100WBC Sodium 144 (135-145) mmol/L Potassium 4.1 (3.3-5.1) mmol/L Chloride 106 (96-108) mmol/L Carbon Dioxide 32 H (22-29) mmol/L Anion Gap 11 L (12-20) BUN 9 (9-16) mg/dL Creatinine 1.07 (0.5-1.4) mg/dL Estim Creat Clear Calc 113.1 Estimated GFR > 60 Random Glucose 83 (60-115) mg/dL Calcium 8.7 (8.4-10.2) mg/dL Magnesium 2.2 (1.6-2.6) mg/dL Total Bilirubin 0.8 (0.0-1.0) mg/dL Direct Bilirubin 0.2 (0.0-0.5) mg/dL AST 21 (5-37) U/L ALT 23 (0-40) U/L Alkaline Phosphatase 104 (39-117) U/L Total Protein 6.7 (6.5-8.0) g/dL Albumin 3.9 (3.5-5.0) g/dL Lipase 35 (8-78) U/L Influenza Type A (PCR) NEGATIVE (Negative) Influenza Type B (PCR) NEGATIVE (Negative) RSV RNA Qual (PCR) NEGATIVE (Negative) SARS-CoV-2 RNA (RT-PCR) NEGATIVE (Negative) Independent Interpretation I performed an independent interpretation of an: Plain X-Ray (Chest x-ray per my independent interpretation shows no acute cardiopulmonary abnormalities.) Discharge Plan Discharge Clinical Impression: Diarrhea Patient Disposition: Home, Self-Care Instructions: Acute Diarrhea (ED) Additional Instructions: Te amaya evaluado por luana enfermedad diarreica. Es probable que se trate de un virus. Ser? importante hacer un an?lisis de heces para evaluar la presencia de luana bacteria y, si es positivo, deber?a recibir luana llamada. Si usted desarrolla cualquier empeoramiento del dolor, fiebre, incapacidad para comer o beber con n?useas y v?mitos o cualquier otra preocupaci?n o cambios en el hogar, especialmente el empeoramiento de la diarrea en el transcurso de varios d?as, por favor regrese inmediatamente. Traducci?n realizada con la versi?n gratuita del traductor [email or web address] Prescriptions: No Action Rectiv 0.4 % (w/w) ointment 1 inch NC BID Qty: 30 0RF benzonatate 100 mg capsule 100 mg PO TID PRN (Reason: cough) Qty: 14 0RF Stand Alone Forms: Work/School Release Interventions: ED Discharge Assessment Last Done: 09/19/24 18:57 Discharge Date/Time: 09/19/24 18:57 Print Language: Prydeinig
[2024-09-19 15:40] LABS: MANUAL DIFF FLAG NO
[2024-09-19 15:44] LABS: Basophils Percent Auto 0.1 % (0-2); Eosinophils Percent Auto 0.6 % (0-4); Hematocrit 45.6 % (42.0-52.0); Hemoglobin 15.9 g/dl (14.0-18.0); Imm Gran Abs Auto 0.02 X10*3/uL (0.00-0.03); Imm Gran Pct Auto 0.3 % (0.0-0.4); Lymphocytes Absolute Auto 1.3 X10*3/uL (1.2-4.9); Mean Corpuscular HGB Conc 34.9 g/dl (31.0-36.0); Mean Corpuscular Hemoglobin 31.8 pg (27.0-33.0); Mean Corpuscular Volume 91.2 fL (80.0-98.0); Mean Platelet Volume 10.3 fL (9.4-12.4); Monocytes Absolute Auto 0.5 X10*3/uL (0.1-1.2); Monocytes Percent Auto 7.2 % (2-11); Neutrophils Absolute Auto 4.8 x10*3/uL (2.0-8.3); Neutrophils Percent Auto 71.8 % (45-73); Platelet Count 183 X10*3/uL (160-400); Red Cell Distribution Width 12.5 % (11.0-16.0); White Blood Count 6.7 X10*3/uL (4.8-10.8)
[2024-09-19 16:00] VITALS: BP 129/76; PULSE 69; RESP 18; TEMP 37.3; O2SAT 96
[2024-09-19 16:15] LABS: Alanine Aminotransferase 23 U/L (0-40); Albumin Level 3.9 g/dL (3.5-5.0); Aspartate Amino Transferase 21 U/L (5-37); Bilirubin Direct 0.2 mg/dL (0.0-0.5); Bilirubin Total 0.8 mg/dL (0.0-1.0); Blood Urea Nitrogen 9 mg/dL (9-16); Calcium 8.7 mg/dL (8.4-10.2); Carbon Dioxide 32 mmol/L (22-29); Chloride 106 mmol/L (96-108); Creatinine Clr Calc Pharmacy 113.1; Estimated Glomerular Filt Rate > 60; Glucose Random 83 mg/dL (60-115); Lipase 35 U/L (8-78); Magnesium 2.2 mg/dL (1.6-2.6); Potassium 4.1 mmol/L (3.3-5.1); Sodium 144 mmol/L (135-145); Total Protein 6.7 g/dL (6.5-8.0)
[2024-09-19 16:16] LABS: Alkaline Phosphatase 104 U/L (39-117); Anion Gap 11 (12-20)
[2024-09-19 16:20] LABS: Influenza A PCR NEGATIVE (Negative); Influenza B PCR NEGATIVE (Negative); Resp Syncy Virus RNA Qual PCR NEGATIVE (Negative); SARS COV2 PCR INHOUSE NEGATIVE (Negative)
--- OUTSIDE RECORDS SUMMARY | 2024-09-19 18:17 | XMS_ITS | Encounter Summary ---
Author Organization [facility] Address [address] [place] [address] Care Team Providers Care Inspector Set Up And Lay Out Name Role Phone Donna Marshall MD Primary Care Provider Lucy Dial MD Primary Care Provider [phone] Otis Chacko MD Primary Care Provider Encounter Details Date Type Department Care Team Description 09/27/2020 Pt. Non Urgent Medic al Question Adult Medicine [address] [address] Donna Marshall MD Social History Tobacco Use Types Packs/Day Years Used Date Smoking Tobacco: Former Cigarettes 0 10/18/1994 - 10/19/2015 Smokeless Tobacco: Former Alcohol Use Standard Drinks/Week Comments No 0 (1 standard drink = 0.6 oz pur e alcohol) Sex Assigned at Date Recorded Not on file Job Start Date Occupation Industry Not on file Not on file Not on file COVID-19 Exposure Response Date Recorded In the last month, have you been in contact with someone who was confirmed or suspected to have Coronavirus / COVID-19? No / Unsure 09/21/2020 3:20 PM EDT documented as of this encounter Miscellaneous Notes * Telephone Encounter - Beatriz Lawrence M.A. - 09/28/2020 9:03 AM EDTFrom: Oz Miles To: Dr. Duarte Marshall Sent: 09/27/2020 10:30 PM EDT Subject: appointment I need to be sent to an otorynolaryngologist because I have a discomfort for several days in my throat and I feel something that scratches me when I swallow and when I touch myself I feel a great discomfort I do not know if it hurts me because I am a aragon documented in this encounter Plan of Treatment Not on file documented as of this encounter Visit Diagnoses Not on filedocumented in this encounter Care Teams Inspector Set Up And Lay Out Relationship Specialty Start Date End Date Donna Marshall MD PCP - General Internal Medicine 02/13/20 08/23/21 Lucy Butcher MD [address] [place] [id number] PCP - General Internal Medicine 08/24/21 08/03/23 Otis Chacko MD [address] [place] [id number] PCP - General Internal Medicine 08/04/23 documented as of this encounter
--- OUTSIDE RECORDS SUMMARY | 2024-09-19 18:17 | XMS_ITS | Encounter Summary ---
Author Organization [facility] Address [address] [place] [address] Care Team Providers Care Quality Assurance Supervisor Chassis Name Role Phone Lucy Butcher MD Primary Care Provider Otis Chacko MD Primary Care Provider Encounter Details Date Type Department Care Team Description 10/26/2022 Pt. Non Urgent Medical Question Bariatric Surgery - [address] [place] [id number] Cindy Treviño MD [address] [place] [address] [address] [place] [address] Social History Tobacco Use Types Packs/Day Years Used Date Smoking Tobacco: Former Cigarettes 0 10/18/1994 - 10/19/2015 Smokeless Tobacco: Former Alcohol Use Standard Drinks/Week Comments No 0 (1 standard drink = 0.6 oz pur e alcohol) Sex Assigned at Date Recorded Not on file Job Start Date Occupation Industry Not on file Not on file Not on file documented as of this encounter Miscellaneous Notes * Telephone Encounter - Isela Fang M.A. - 10/27/2022 8:21 AM EDTFrom: Oz Miles To: Margaux Treviño Sent: 10/26/2022 10:31 PM EDT Subject: Ansiedad Federico Dr. Treviño hacen varios meses tengo shell ansiedad y no s?? alex parar de comer no quiero volver a subir de peso y estoy sufriendo de alg??n problema intestinal que todo el tiempo estoy con gases y son extremadamente desagradable al punto que me causa problemas en mi matrimonio y me he tenido que ir fuera de la habitaci??n a dormir ya no s oporto esta situaci??n y siento que estoy subiendo de peso que puedo hacer necesito ayuda Vipin de antemano documented in this encounter Plan of Treatment Not on file documented as of this encounter Visit Diagnoses Not on filedocumented in this encounter Care Teams Quality Assurance Supervisor Chassis Relationship Specialty Start Date End Date Lucy Butcher MD [address] [place] [id number] PCP - General Internal Medicine 08/24/21 08/03/23 Otis Chacko MD [address] [place] [phone] PCP - General Internal Medicine 08/04/23 documented as of this encounter
--- OUTSIDE RECORDS SUMMARY | 2024-09-19 18:17 | XMS_ITS | Encounter Summary ---
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 - 11/22/2018 9:52 AM EDT Pt was notified he needs to sign NICCI * Telephone Encounter - Juliette Amanda NP - 11/22/2018 5:52 AM EDT Please advise patient that if he does not complete NICCI form urology will not proceed w/ referral tosee him. * Telephone Encounter - Tiesha Mcintosh - 11/21/2018 3:23 PM EDT Juliette Huntley Just a FYI Patient was mailed out a NICCI to complete and mailed back which he did but decline for us to send office notes to [facility] if they do not receive the office notes they willnot book any appt for this patient. Please have your clinical staff to reach out to pateint. Thank you Breanne Referral [place] documented in this encounter Plan of Treatment Not on file documented as of this encounter Visit Diagnoses Not on filedocumented in this encounter Care Teams Lost And Found Clerk Relationship Specialty Start Date End Date Talha Martinez MD PCP - General Internal Medicine 08/16/18 02/12/20 Donna Marshall MD PCP - General Internal Medicine 02/13/20 08/23/21 Lucy Butcher MD [address] [place] [address] PCP - General Internal Medicine 08/24/21 08/03/23 Otis Chacko MD [address] [place] [id number] PCP - General Internal Medicine 08/04/23 documented as of this encounter
--- OUTSIDE RECORDS SUMMARY | 2024-09-19 18:17 | XMS_ITS | Encounter Summary ---
Author Organization [facility] Address [address] [place] [address] Care Team Providers Care Reservations Clerk Name Role Phone Lucy Butcher MD Primary Care Provider [phone] Otis Chacko MD Primary Care Provider Encounter Details Date Type Department Care Team Description 07/09/2023 Pt. Non Urgent Medical Question Bariatric Surgery - [address] [place] [phone] Cindy Treviño MD [address] [place] [address] [address] [place] [address] Social History Tobacco Use Types Packs/Day Years Used Date Smoking Tobacco: Former Cigarettes 0 10/18/1994 - 10/19/2015 Smokeless Tobacco: Former Alcohol Use Standard Drinks/Week Comments No 0 (1 standard drink = 0.6 oz pur e alcohol) Sex Assigned at Date Recorded Not on file Job Start Date Occupation Industry Not on file Not on file Not on file documented as of this encounter Plan of Treatment Not on file documented as of this encounter Visit Diagnoses Not on filedocumented in this encounter Care Teams Reservations Clerk Relationship Specialty Start Date End Date Lucy Butcher MD [address] [place] [phone] PCP - General Internal Medicine 08/24/21 08/03/23 Otis Chacko MD [address] [place] [phone] PCP - General Internal Medicine 08/04/23 documented as of this encounter
--- OUTSIDE RECORDS SUMMARY | 2024-09-19 18:17 | XMS_ITS | Encounter Summary ---
Author Organization [facility] Address [address] [place] [address] Care Team Providers Care Corporate Administrator Name Role Phone Donna Marshall MD Primary Care Provider Lucy Dial MD Primary Care Provider [phone] Otis Chacko MD Primary Care Provider Encounter Details Date Type Department Care Team Description 08/05/2021 Pt. Non Urgent Medical Question General Surgery - [place] [address] [facility] [address] [place] [address] Cindy Treviño MD [address] [place] [address] [address] [place], [place] [phone] Social History Tobacco Use Types Packs/Day Years [...] encounter Miscellaneous Notes * Telephone Encounter - Cindy Treviño MD - 08/09/2021 2:37 PM EST Can you try to squeeze this patient to see me this week. I can also do an audio visit. * Telephone Encounter - Nunu Luis M.A. - 08/09/2021 8:23 AM ESTFrom: Oz Miles To: Margaux Treviño Sent: 08/05/2021 6:26 PM EST Subject: Reflujo Necesito tener luana dunia lo antes posible ya que me practicaron unos ex??menes y nunca me llamaron para darme la pr??xima dunia y continuo con el dolor de est??lawrence por el reflujo g??strico documented in this encounter Plan of Treatment Not on file documented as of this encounter Visit Diagnoses Not on filedocumented in this encounter Care Teams Corporate Administrator Relationship Specialty Start Date End Date Donna Marshall MD PCP - General Internal Medicine 02/13/20 08/23/21 Lucy Butcher MD [address] [place] [phone] PCP - General Internal Medicine 08/24/21 08/03/23 Otis Chacko MD [address] [place] [phone] PCP - General Internal Medicine 08/04/23 documented as of this encounter
--- OUTSIDE RECORDS SUMMARY | 2024-09-19 18:17 | XMS_ITS | Encounter Summary ---
Author Organization [facility] Address [address] [place] [address] Care Team Providers Care Tunnel Kiln Firer Name Role Phone Lucy Butcher MD Primary Care Provider [phone] Otis Chacko MD Primary Care Provider Encounter Details Date Type Department Care Team Description 02/01/2022 Orders Only Medical Records [address] [place] [address] Cindy Treviño MD [address] [place] [address] [address] [place] [address] Social History Tobacco Use Types Packs/Day Years [...] Exposure Response Date Recorded In the last 10 days, have yo u been in contact with someone who was confirmed or suspected to have Coronavirus/COVID-19? No / Unsure 01/25/2022 10:28 AM EDT documented as of this encounter Plan of Treatment Not on file documented as of this encounter Procedures Procedure Name Priority Date/Time Associated Diagnosis Comments OUTSIDE PLAIN FILM Routine 02/01/2022 documented in this encounter Results * OUTSIDE PLAIN FILM (02/01/2022) Cindy Treviño MD RADIOLOGY documented in this encounter Visit Diagnoses Not on filedocumented in this encounter Care Teams Tunnel Kiln Firer Relationship Specialty Start Date End Date Lucy Butcher MD [address] [place] [phone] PCP - General Internal Medicine 08/24/21 08/03/23 Otis Chacko MD [address] [place] [phone] PCP - General Internal Medicine 08/04/23 documented as of this encounter
--- OUTSIDE RECORDS SUMMARY | 2024-09-19 18:17 | XMS_ITS | Encounter Summary ---
Author Organization [employer] [facility] Address [address] [place] [address] Care Team Providers Care Ceramic Research Engineer Name Role Phone Otis Chacko MD Primary Care Provider Reason for Visit * Reason Comments E-prescribe Rx Request Encounter Details Date Type Department Care Team Description 08/07/2023 Refill Bariatric Surgery [address] [place] [address] Cindy Treviño MD [address] [place] [address] [address] [place] [address] E-prescribe Rx Request Social History Tobacco Use Types Packs/Day Years Used Date Smoking Tobacco: Former Cigarettes Smokeless Tobacco: Never Comments:Started age 10; max 2 PPDs; quit 10/19/15 Alcohol Use Standard Drinks/Week Comments Not Currently 0 (1 standard drink = 0.6 oz pur e alcohol) heavy drinking quit 2014 Education Answer Date Recorded What is the highest level of school you have completed or the highest degree you have received? 12th grade 08/04/2023 Sex Assigned at Date Recorded Not on file Job Start Date Occupation Industry Not on file Not on file Not on file documented as of this encounter Plan of Treatment Not on file documented as of this encounter Visit Diagnoses Diagnosis Class 1 obesity due to excess calories with body mass index (BMI) of 32.0 to 32.9 in adult, unspecified whether serious comorbidity present documented in this encounter Care Teams Ceramic Research Engineer Relationship Specialty Start Date End Date Otis Chacko MD [address] [place] [phone] PCP - General Internal Medicine 08/04/23 documented as of this encounter
--- OUTSIDE RECORDS SUMMARY | 2024-09-19 18:17 | XMS_ITS | Encounter Summary ---
Author Organization [facility] Address [address] [place] [address] Care Team Providers Care Aerospace Engineer Name Role Phone Donna Marshall MD Primary Care Provider Lucy Dial MD Primary Care Provider [phone] Otis Chacko MD Primary Care Provider Encounter Details Date Type Department Care Team Description 06/02/2021 Orders Only General Surgery - [place] [address] [facility] [address] [place] [address] Cindy Treviño MD [address] [place] [address] [address] [place], [place] [phone] Class 1 obesity due to excess calories without serious comorbidity with body mass index (BMI) of 32.0 to 32.9 in adult Social History Tobacco Use Types Packs/Day Years [...] have Coronavirus / COVID-19? No / Unsure 05/11/2021 2:53 PM EST documented as of this encounter Plan of Treatment Not on file documented as of this encounter Procedures Procedure Name Priority Date/Time Associated Diagnosis Comments CHG RADIOLOGIC EXAM UPR GI TRC DOUBLE CONTRAST STUDY Routine 06/02/2021 Class 1 obesity due to excess calories without serious comorbidity with body mass index (BMI) of 32.0 to 32.9 in adult documented in this encounter Results * CHG RADIOLOGIC EXAM UPR GI TRC DOUBLE CONTRAST STUDY (06/02/2021) Cindy Treviño MD OUTSIDE RADIOLOGY documented in this encounter Visit Diagnoses Diagnosis Class 1 obesity due to excess calories without serious comorbidity with body mass index (BMI) of 32.0 to 32.9 in adult documented in this encounter Care Teams Aerospace Engineer Relationship Specialty Start Date End Date Donna Marshall MD PCP - General Internal Medicine 02/13/20 08/23/21 Lucy Butcher MD [address] [place] [address] PCP - General Internal Medicine 08/24/21 08/03/23 Otis Chacko MD [address] [place] [phone] PCP - General Internal Medicine 08/04/23 documented as of this encounter
--- OUTSIDE RECORDS SUMMARY | 2024-09-19 18:17 | XMS_ITS | Encounter Summary ---
Author Organization [facility] Address [address] [place] [address] Care Team Providers Care Answering Service Agent Name Role Phone Donna Marshall MD Primary Care Provider Unava Talha High MD Primary Care Provider Unavaila Donna Wang MD Primary Care Provider Unava Lucy Esparza MD Primary Care Provider [phone] Otis Chacko MD Primary Care Provider Reason for Visit * Reason Onset Date Comments LAB WORK 07/10/2018 Encounter Details Date Type Department Care Team Description 07/10/2018 Telephone General Surgery - [address] [place] [address] Cindy Treviño MD [address] [place] [address] [address] [place], [place] [phone] LAB WORK Social History Tobacco Use Types Packs/Day Years [...] encounter Miscellaneous Notes * Telephone Encounter - Martha Hurst - 07/10/2018 4:42 PM EST Please order bariatric labs for this patient. documented in this encounter Plan of Treatment Not on file documented as of this encounter Visit Diagnoses Not on filedocumented in this encounter Care Teams Answering Service Agent Relationship Specialty Start Date End Date Donna Marshall MD PCP - General Internal Medicine 09/18/17 08/15/18 Talha Martinez MD PCP - General Internal Medicine 08/16/18 02/12/20 Donna Marshall MD PCP - General Internal Medicine 02/13/20 08/23/21 Lucy Butcher MD [address] [place] [phone] PCP - General Internal Medicine 08/24/21 08/03/23 Otis Chacko MD [address] [place] [phone] PCP - General Internal Medicine 08/04/23 documented as of this encounter
--- OUTSIDE RECORDS SUMMARY | 2024-09-19 18:17 | XMS_ITS | Encounter Summary ---
Author Organization [facility] Address [address] [place] [address] Care Team Providers Care Clinical Project Coordinator Name Role Phone Lucy Butcher MD Primary Care Provider Otis Chacko MD Primary Care Provider Encounter Details Date Type Department Care Team Description 11/26/2021 Pt. Non Urgent Medical Question Adult Medicine [address] [address] Martha Salguero PA-C [address] [place] [address] [id number] Social History Tobacco Use Types Packs/Day Years [...] encounter Miscellaneous Notes * Telephone Encounter - Padmini Rizzo M.A. - 11/26/2021 10:08 AM EDTFrom: Oz Miles To: Fiorella Salguero Sent: 11/26/2021 9:56 AM EDT Subject: Physical I need a copy or letter of the physical for my work because possession requires it documented in this encounter Plan of Treatment Not on file documented as of this encounter Visit Diagnoses Not on filedocumented in this encounter Care Teams Clinical Project Coordinator Relationship Specialty Start Date End Date Lucy Butcher MD [address] [place] [address] PCP - General Internal Medicine 08/24/21 08/03/23 Otis Chacko MD [address] [place] [address] PCP - General Internal Medicine 08/04/23 documented as of this encounter
--- OUTSIDE RECORDS SUMMARY | 2024-09-19 18:17 | XMS_ITS | Encounter Summary ---
Author Organization [facility] Address [address] [place] [address] Care Team Providers Care Electroless Plater Name Role Phone Talha Martinez MD Primary Care Provider Donna Boggs MD Primary Care Provider Lucy Dial MD Primary Care Provider [phone] Otis Chacko MD Primary Care Provider Encounter Details Date Type Department Care Team Description 12/05/2018 Orders Only Medical Records [address] [place] [address] Juliette Amanda NP Social History Tobacco Use Types Packs/Day Years [...] Name Priority Date/Time Associated Diagnosis Comments OUTSIDE SLEEP STUDY Routine 12/01/2018 documented in this encounter Results * OUTSIDE SLEEP STUDY (12/01/2018) Juliette Amanda NP PULMONOLOGY documented in this encounter Visit Diagnoses Not on filedocumented in this encounter Care Teams Electroless Plater Relationship Specialty Start Date End Date Talha Martinez MD PCP - General Internal Medicine 08/16/18 02/12/20 Donna Marshall MD PCP - General Internal Medicine 02/13/20 08/23/21 Lucy Butcher MD [address] [place] [address] PCP - General Internal Medicine 08/24/21 08/03/23 Otis Chacko MD [address] [place] [address] PCP - General Internal Medicine 08/04/23 documented as of this encounter
--- OUTSIDE RECORDS SUMMARY | 2024-09-19 18:17 | XMS_ITS | Encounter Summary ---
Author Organization [facility] Address [address] [place] [address] Care Team Providers Care Glass Tube Bender Name Role Phone Talha Martinez MD Primary Care Provider Donna Boggs MD Primary Care Provider Lucy Dial MD Primary Care Provider [phone] Otis Chacko MD Primary Care Provider Encounter Details Date Type Department Care Team Description 11/25/2019 Refill Adult Medicine [address] [address] Stefanie Woodard MD Social History Tobacco Use Types Packs/Day [...] Telephone Encounter - Tiesha Vazquez M.A. - 11/26/2019 9:04 AM EDT Pt needs to be seen for further refills Left message for pt to schedule appt documented in this encounter Plan of Treatment Not on file documented as of this encounter Visit Diagnoses Not on filedocumented in this encounter Care Teams Glass Tube Bender Relationship Specialty Start Date End Date Talha Martinez MD PCP - General Internal Medicine 08/16/18 02/12/20 Donna Marshall MD PCP - General Internal Medicine 02/13/20 08/23/21 Lucy Butcher MD [address] [place] [phone] PCP - General Internal Medicine 08/24/21 08/03/23 Otis Chacko MD [address] [place] [address] PCP - General Internal Medicine 08/04/23 documented as of this encounter
--- OUTSIDE RECORDS SUMMARY | 2024-09-19 18:17 | XMS_ITS | Encounter Summary ---
Author Organization [facility] Address [address] [place] [address] Care Team Providers Care Hand Spinner Name Role Phone Talha Martinez MD Primary Care Provider Donna Boggs MD Primary Care Provider Lucy Dial MD Primary Care Provider [phone] Otis Chacko MD Primary Care Provider Encounter Details Date Type Department Care Team Description 12/18/2018 Release of Information Medical Records [address] [place] [id number] Abstract, Provider Social History Tobacco Use Types Packs/Day Years [...] on filedocumented in this encounter Care Teams Hand Spinner Relationship Specialty Start Date End Date Talha Martinez MD PCP - General Internal Medicine 08/16/18 02/12/20 Donna Marshall MD PCP - General Internal Medicine 02/13/20 08/23/21 Lucy Butcher MD [address] [place] [address] PCP - General Internal Medicine 08/24/21 08/03/23 Otis Chacko MD [address] [place] [address] PCP - General Internal Medicine 08/04/23 documented as of this encounter
--- OUTSIDE RECORDS SUMMARY | 2024-09-19 18:17 | XMS_ITS | Encounter Summary ---
Author Organization [facility] Address [address] [place] [address] Care Team Providers Care Apprenticeship Representative Name Role Phone Lucy Butcher MD Primary Care Provider [phone] Otis Chacko MD Primary Care Provider Encounter Details Date Type Department Care Team Description 02/04/2022 Hospital Medical Records [address] [place] [address] Cindy Treviño MD [address] [place] [address] [address] [place] [address] Social History Tobacco Use Types Packs/Day Years [...] on filedocumented in this encounter Care Teams Apprenticeship Representative Relationship Specialty Start Date End Date Lucy Butcher MD [address] [place] [address] PCP - General Internal Medicine 08/24/21 08/03/23 Otis Chacko MD [address] [place] [address] PCP - General Internal Medicine 08/04/23 documented as of this encounter
--- OUTSIDE RECORDS SUMMARY | 2024-09-19 18:17 | XMS_ITS | Clinical Summary ---
Author Organization [facility] Address [address] [place] [address] Phone Care Team Providers Care Oracle Applications Analyst Name Role Phone Otis Chacko MD Primary Care Provider Allergies No known active allergies Medications Lactobacillus acidophilus (PROBIOTIC ORAL) Take 1 Capsule by mouth daily. 4 Active topiramate (Topamax) 50 mg tabletIndication s:Obesity, Class I, BMI 30-34.9 Take 1 tablet (50 mg total) by mouth at bedtime. 30 tablet 1 4 Active blood-glucose meter kit Use daily or as directed for monitoring of diabetes. 1 each 4 04/30/20 25 Active Additional Information Patient not taking.Reported on 06/24/2024 glucose blood test strip Use as instructed 100 each 5 4 04/30/20 25 Active Additional Information Patient not taking.Reported on 06/24/2024 lancets lancets Use as instructed 100 each 5 4 04/30/20 25 Active Additional Information Patient not taking.Reported on 06/24/2024 senna (SENOKOT) 8.6 mg tablet Take 1 tablet (8.6 mg total) by mouth 2 (two) times a day. 180 each 5 Active polyethylene glycol (MIRALAX) 17 gram packet Take 17 g by mouth 1 (one) time each day. 100 each 1 5 Active methylcellulose oral powder Take 1 packet by mouth 1 (one) time each day. 850 g 1 5 06/24/19 26 Active Active Problems Problem Noted Date Diagnosed Date CTS (carpal tunnel syndrome) 04/10/2024 Prediabetes 06/02/2021 Overview (04/10/2024): Lab Results Component Value Date HGBA1C 5.8 11/13/2018 Hypertriglyceridemia 06/02/2021 Hiatal hernia 06/02/2021 Esophageal dysmotility 06/02/2021 Overview (04/10/2024): Moderate, seen on UGI study done 06/02/21 PLMD (periodic limb movement disorder) 9 Obstructive sleep apnea 03/20/2019 Overview (04/10/2024): UNTREATED (08/04/23) [facility] Polysomnogram: Date 03/13/2019; Wt 356#; BMI 50; SE 89%; SM 95%; REM 18%; RDI 10 (AHI 5), REM (RDI 10 - AHI 5), Central apneas 0; Obstructive apneas 0; Mixed apneas 0; hypopneas 19; RERAs 14; average oxygen saturation 94% (lowest 88% - without saturations <88% for 5% or more of study); PLMs 18. Prestudy ESS 3; 0/4 RLS symptoms. - Obstructive Sleep Apnea - mild overall; mostly hypopneas; without sleep related hypoventilation by 2019 polysomnogram. Obesity (BMI 30.0-34.9) 03/12/2019 Overview (04/10/2024): s/p sleeve gastrectomy (02/01/19) Intestinal malabsorption following gastrectomy 1 Vitamin D deficiency 11/14/2018 GERD (gastroesophageal reflux disease) 8 Tinea pedis of both feet 04/12/2018 Encounters Date Type Department Care Team Description 06/25/2024 1:45 PM EST Office Visit Bariatric Surgery - [address] [address] Cindy Treviño MD Class 1 obesity due to excess calories with body mass index (BMI) of 32.0 to 32.9 in adult, unspecified whether serious comorbidity present (Primary Dx); Hematuria, unspecified type; Blood in the stool; Postoperative intestinal malabsorption 06/24/2024 11:30 AM EST Office Visit Adult Medicine [address] [address] Otis Chacko MD Other constipation (Primary Dx); Gastroesophageal reflux disease, unspecified whether esophagitis present; Intestinal malabsorption following gastrectomy; Anterior anal fissure from Last 3 Months Immunizations Name Administration Dates Next Due Influenza Quadravalent, MDCK , 0.5ml, preservative free (Flucelvax) 6mo and older 08/04/2023,08/24/2021,05/28/2018 Tdap Tetanus diptheria acell ular pertussis (Boostrix; Adacel) 7yo and older 10/18/2017 Surgical History Surgery Date Site/Laterality Comments APPENDECTOMY 1992 PROCEDURE: HISTORICAL APPENDECTOMY TONSILLECTOMY 1990 PROCEDURE: HISTORICAL TONSILLECTOMY OTHER SURGICAL HISTORY 1991 PROCEDURE: CA UNLISTED PROCEDURE MALE GENITAL SYSTEM; COMMENT: Repair of varicocele at age 6 per mother's report BARIATRIC SURGERY 02/01/2019 PROCEDURE: CA LAPS GSTRC RSTRICTIV PX LONGITUDINAL GASTRECTOMY; COMMENT: SLEEVE w/ [facility] CARPAL TUNNEL RELEASE 03/2020 Left PROCEDURE: CA NEUROPLASTY &/TRANSPOS MEDIAN NRV CARPAL TUNNE; COMMENT: with Dr. Baeza CARPAL TUNNEL RELEASE 11/25/2020 Right PROCEDURE: CA NEUROPLASTY &/TRANSPOS MEDIAN NRV CARPAL TUNNE; COMMENT: with Dr. Baeza Medical History Medical History Date Comments CTS (carpal tunnel syndrome) DX: CTS (carpal tunnel syndrome) Tinea pedis of both feet 04/12/2018 DX:[place] a pedis of both feet Gastroesophageal reflux dise ase without esophagitis 05/28/2018 DX:Gastroesophageal reflux disease without esophagitis Class 3 severe obesity due t o excess calories without serious comorbidity with body mass index (BMI) of 45.0 to 49.9 in adult 12/27/2018 DX:Class 3 severe obesity du e to excess calories without serious comorbidity with body mass index (BMI) of 45.0 to 49.9 in adult (HCC) Vitamin D deficiency 11/14/2018 DX:Vitamin D deficiency Hypertriglyceridemia 06/02/2021 DX:Hypertri glyceridemia S/P gastric sleeve procedure 06/02/2021 DX: S/P gastric sleeve procedure Hiatal hernia 06/02/2021 DX:Hiatal hernia GERD (gastroesophageal reflux disease) 8 DX:GERD (gastroesophageal reflux disease) Esophageal dysmotility 06/02/2021 DX:Esopha geal dysmotility; COMMENT: Moderate, seen on UGI study done 06/02/21 Esophageal dysmotility DX:Esopha geal dysmotility Flatulence/gas pain/belching DX: Flatulence/gas pain/belching H/O bariatric surgery DX:H/O bar iatric surgery Family History Medical History Relation Name Comments Other: skin cancer Aunt maternal Diabetes Brother x 2 liver transplan t (non-EtOH related) Hypertension Father Hypertension Maternal Grandfather HLD Hypertension Maternal Grandmother HLD, gl aucoma Diabetes Mother HTN, CTS, fibro myalgia, thyroid cancer (age 53) Other: unknown cancer Paternal Grandfather Diabetes Paternal Grandmother glaucom a Diabetes Sister x 4 Relation Name Status Comments Aunt maternal Alive Brother x 2 Alive Father Alive Maternal Grandfather Maternal Grandmother Mother Alive Paternal Grandfather Paternal Grandmother Sister x 4 Alive Social History Tobacco Use Types Packs/Day Years Used Date Smoking Tobacco: Former Smokeless Tobacco: Never Tobacco Cessation:Counseling Given: Not Answered Alcohol Use Standard Drinks/Week Comments Not Currently 0 (1 standard drink = 0.6 oz pur e alcohol) Sex and Gender Information Value Date Recorded Sex Assigned at Not on file Legal Sex Male 10:52 PM EST Gender Identity Not on file Sexual Orientation Not on file Obstetrics History Last Filed Vital Signs Vital Sign Reading Time Taken Comments Blood Pressure 130/77 06/25/2024 2:13 PM EST Pulse 88 06/25/2024 2:13 PM EST Temperature 36.6 ??C (97.8 ??F) 06/25/2024 2:13 PM ES T Respiratory Rate 15 06/24/2024 11:25 AM EST Oxygen Saturation - - Inhaled Oxygen Concentration - - Weight 107 kg (235 lb) 06/25/2024 2:13 PM EST Height 180.3 cm (5' 11 ) 06/25/2024 2:13 PM EST Body Mass Index 32.78 06/25/2024 2:13 PM EST Plan of Treatment Upcoming Encounters Date Type Department Care Team (Late st Contact Info) Description 10/04/2024 11:30 AM EDT Office Visit Adult Medicine [facility] [address] [place] [address] Otis Chacko MD [address] [place] [address] 12/24/2024 9:15 AM EDT Office Visit Bariatric Surgery - [place] [facility] [address] [place] [address] Cindy Treviño MD [address] [facility] [address] [place] [address] Health Maintenance Due Date Last Done Comments Social Influencers of Health Screening 2022 Hepatitis B Vaccines (2 of 2 - CpG 2-dose series) 09/04/2024 08/07/2024 Depression Screening 11/15/2024 11/16/2023 DTaP,Tdap,and Td Vaccines (2 - Td or Tdap) 10/19/2027 10/18/2017 Cholesterol Screening (Lipid Panel) 08/30/2028 08/31/2023 HIV Screening Completed 10/24/2018 Hepatitis C Screening Completed 10/24/2018 COVID-19 Vaccine Completed 08/07/2024, 03/09/2021 Influenza Vaccine Completed 08/07/2024, , 08/24/2021, Additional history exists HIB Vaccines Aged Out No longer eligi ble based on patient's age to complete this topic HPV Vaccines Aged Out No longer eligi ble based on patient's age to complete this topic Hepatitis A Vaccines Aged Out No long er eligible based on patient's age to complete this topic IPV Vaccines Aged Out No longer eligi ble based on patient's age to complete this topic MMR Vaccines Aged Out No longer eligi ble based on patient's age to complete this topic Meningococcal ACWY Vaccine Aged Out N o longer eligible based on patient's age to complete this topic Meningococcal B Vaccine Aged Out No l onger eligible based on patient's age to complete this topic Pneumococcal Vaccine: Pediatrics (0 to 5 Years) and At-Risk Patients (6 to 64 Years) Aged Out No longer eligible based on patient's age to complete this topic RSV Immunization Patients Under 20 months Aged Out No longer eligible based on patient's age to complete this topic Varicella Vaccines Aged Out No longer eligible based on patient's age to complete this topic Procedures Procedure Name Priority Date/Time Associated Diagnosis Comments DEPRESSION SCREENING Routine 11/16/2023 LIPID PANEL Routine 08/31/2023 HEPATITIS C SCREENING Routine 10/24/2018 HIV SCREENING Routine 10/24/2018 from Last 3 Months or Most Recently Relevant to Health Maintenance Results * Depression Screening (11/16/2023) [facility] Depression Screening abstracted [facility] Provider HEALTH MAINTENANCE Final Result * Lipid panel (08/31/2023) [facility] LDL/HDL Ratio 3 0 - 4 Triglycerides 49 0 - 150 mg/dL Cholesterol 131 0 - 200 mg/dL HDL 47 >=40 mg/dL LDL Cholesterol 75 0 - 100 mg/dL Blood Venous blood specimen / Unknown Result [facility] Provider LAB BLOOD ORDERABLES Rochelle l Result * HIV Screening (10/24/2018) [facility] HIV Screening abstracted [facility] Provider HEALTH MAINTENANCE Final Result * Hepatitis C Screening (10/24/2018) [facility] Hepatitis C Screening abstracted [facility] Provider HEALTH MAINTENANCE Final Result from Last 3 Months or Most Recently Relevant to Health Maintenance Insurance [employer] Advance Directives Documents on File Type Date Recorded Patient Vp Of Product Expl anation Health Care Decision (hx) 01/25/2019 AD MATHIS DIRECTIVE Health Care Decision (hx) 01/25/2019 AD MATHIS DIRECTIVE Health Care Decision (hx) 01/25/2019 AD MATHIS DIRECTIVE Health Care Decision (hx) 01/25/2019 AD MATHIS DIRECTIVE Health Care Decision (hx) 01/25/2019 AD MATHIS DIRECTIVE Health Care Decision (hx) 01/25/2019 AD MATHIS DIRECTIVE Health Care Decision (hx) 01/25/2019 AD MATHIS DIRECTIVE Health Care Decision (hx) 01/25/2019 AD MATHIS DIRECTIVE Health Care Decision (hx) 01/25/2019 AD MATHIS DIRECTIVE Health Care Decision (hx) 01/25/2019 AD MATHIS DIRECTIVE Health Care Decision (hx) 01/25/2019 AD MATHIS DIRECTIVE Health Care Decision (hx) 01/25/2019 AD MATHIS DIRECTIVE Health Care Decision (hx) 01/25/2019 AD MATHIS DIRECTIVE Health Care Decision (hx) 01/25/2019 AD MATHIS DIRECTIVE Health Care Decision (hx) 01/25/2019 AD MATHIS DIRECTIVE Health Care Decision (hx) 01/25/2019 AD MATHIS DIRECTIVE Care Teams Oracle Applications Analyst Relationship Specialty Start Date End Date Otis Chacko MD [address] [place] [address] PCP - General 08/04/23
--- OUTSIDE RECORDS SUMMARY | 2024-09-19 18:17 | XMS_ITS | Encounter Summary ---
Author Organization [facility] Address [address] [place] [address] Care Team Providers Care Vice President Marketing & Development Name Role Phone Talha Martinez MD Primary Care Provider Donna Boggs MD Primary Care Provider Lucy Dial MD Primary Care Provider [phone] Otis Chacko MD Primary Care Provider Reason for Visit * Reason Onset Date Comments TEST RESULTS 12/10/2018 Encounter Details Date Type Department Care Team Description 12/10/2018 Telephone Adult [address] [address] Juliette Amanda NP TEST RESULTS Social History Tobacco Use Types Packs/Day Years [...] Telephone Encounter - Tiesha Vazquez M.A. - 12/10/2018 1:27 PM EDT Left message for pt to returned my call. [phone] * Telephone Encounter - Tiesha Vazquez M.A. - 12/10/2018 1:27 PM EDT ----- Message from Juliette Amanda NP sent at 12/10/2018 12:22 PM EDT ----- Please advise pt that there was another failed home study - per pulmonology recommendation I placeda new order as follows - failed two home sleep study tests - diagnostic polysomnogram required documented in this encounter Plan of Treatment Not on file documented as of this encounter Visit Diagnoses Not on filedocumented in this encounter Care Teams Vice President Marketing & Development Relationship Specialty Start Date End Date Talha Martinez MD PCP - General Internal Medicine 08/16/18 02/12/20 Donna Marshall MD PCP - General Internal Medicine 02/13/20 08/23/21 Lucy Butcher MD [address] [place] [address] PCP - General Internal Medicine 08/24/21 08/03/23 Otis Chacko MD [address] [place] [address] PCP - General Internal Medicine 08/04/23 documented as of this encounter
--- OUTSIDE RECORDS SUMMARY | 2024-09-19 18:17 | XMS_ITS | Encounter Summary ---
Author Organization [facility] Address [address] [place] [address] Care Team Providers Care Live Truck Technician Name Role Phone Talha Martinez MD Primary Care Provider Donna Boggs MD Primary Care Provider Lucy Dial MD Primary Care Provider [phone] Otis Chacko MD Primary Care Provider Reason for Referral * Non JEFFERSON (Routine) - Authorized/Booked Specialty Diagnoses / Procedures Referred By Contac t Referred To Contact Pulmonology Procedures REFERRAL TO PULMONOLOGY Juliette Amanda NP [address] [place] [address] Pulmo/[place] [address] [address] Referral ID Status Reason Start Date Expiration Date V isits Requested Visits Authorized [id number] Authorized/B ooked 03/21/2019 03/20/2020 1 1 Encounter Details Date Type Department Care Team Description 03/21/2019 Orders Only Adult Medicine [address] [phone] Juliette Amanda NP Social History Tobacco Use [...] on filedocumented in this encounter Care Teams Live Truck Technician Relationship Specialty Start Date End Date Talha Martinez MD PCP - General Internal Medicine 08/16/18 02/12/20 Donna Marshall MD PCP - General Internal Medicine 02/13/20 08/23/21 Lucy Butcher MD [address] [place] [address] PCP - General Internal Medicine 08/24/21 08/03/23 Otis Chacko MD [address] [place] [address] PCP - General Internal Medicine 08/04/23 documented as of this encounter
--- OUTSIDE RECORDS SUMMARY | 2024-09-19 18:17 | XMS_ITS | Encounter Summary ---
Author Organization [facility] Address [address] [place] [address] Care Team Providers Care Dba Developer Name Role Phone Talha Martinez MD Primary Care Provider Donna Boggs MD Primary Care Provider Lucy Dial MD Primary Care Provider [phone] Otis Chacko MD Primary Care Provider Encounter Details Date Type Department Care Team Description 09/08/2019 Pt. Non Urgent Medic al Question Physiatry - [address] [phone] Sin Wharton PA-C Social History Tobacco Use Types Packs/Day Years [...] on filedocumented in this encounter Care Teams Dba Developer Relationship Specialty Start Date End Date Talha Martinez MD PCP - General Internal Medicine 08/16/18 02/12/20 Donna Marshall MD PCP - General Internal Medicine 02/13/20 08/23/21 Lucy Butcher MD [address] [place] [address] [id number] PCP - General Internal Medicine 08/24/21 08/03/23 Otis Chacko MD [address] [place] [address] PCP - General Internal Medicine 08/04/23 documented as of this encounter
[2024-09-19 18:22] VITALS: BP 138/75; PULSE 69; RESP 18; TEMP 37.2; O2SAT 98
[2024-09-19] MEDS: Dicyclomine HCl 10 MG CAPSULE PO (18:22)
[2024-09-19] MEDS: Omeprazole 40 MG CAPSULE.DR PO (18:22)
[2024-09-19 18:57] VITALS: BP 138/75; PULSE 69; RESP 18; TEMP 37.2; O2SAT 98
== END 2024-09-19 18:57 | disposition home or self-care (01) ==
PROVIDERS: Physician Assistant; Emergency Provider Emergency Medicine; PCP Internal Medicine
DX: R07.89 Other chest pain (principal); R07.81 Pleurodynia; R10.2 Pelvic and perineal pain; R19.7 Diarrhea, unspecified; Z98.84 Bariatric surgery status; Z03.818 Encounter for observation for suspected exposure to other biological agents ruled out
CPT/HCPCS: 0241U; 71046; 80048; 80076; 83690; 83735; 85025; 99283; 99284

== ENCOUNTER → 2024-09-19 15:05 | Outpatient (BNV) | payer OTHER, SELFPAY | PROVIDERS: PCP Internal Medicine; Visit Provider Radiology Diagnostic Radiology | DX: M41.24 Other idiopathic scoliosis, thoracic region (principal) | CPT/HCPCS: 71046 ==